=== PATIENT | female | born 1975 | race Caucasian/White ===

== ENCOUNTER 2016-08-24 15:30 | Emergency (ER) | payer MEDICAID ==
[~2016-08-24] VITALS: Ht 152.4 cm; Wt 56.7 kg
[2016-08-24 17:02] VITALS: BP 118/65
--- NOTE | 2016-08-24 17:10 | NUR ---
PATIENT TAKEN TO WR
--- NOTE | 2016-08-24 17:20 | NUR ---
PATIENT TAKEN TO XR
--- NOTE | 2016-08-24 18:00 | NUR ---
PATIENT TAKEN TO OFBrijesh AYON TALKING TO PATIENT REGARDING XR RESULTS
[2016-08-24] MEDS ORDERED: KETOROLAC 30 MG/ML VIAL IM ONE (18:20)
--- NOTE | 2016-08-24 18:33 | NUR ---
MEDICATED FOR PAIN
[2016-08-24 18:51] VITALS: BP 99/58
--- NOTE | 2016-08-24 18:51 | NUR ---
Patient discharged with v/s stable. Written and verbal after care instructions given and explained. Patient alert, oriented and verbalized understanding of instructions. Ambulatory with to home. All questions addressed prior to discharge. ID band removed. Patient advised to follow up with PMD. Rx of MOTRIN given. Patient educated on indication of medication including possible reaction and side effects. Opportunity to ask questions provided and answered.
--- NOTE | 2016-08-24 18:51 | NUR ---
AMB. WITH CRUTCHES.REFUSED W/C ASSISTANCE
== END 2016-08-24 18:51 | disposition home or self-care (01) ==
LOC: MED 15:30
DX: S70.01XA Contusion of right hip, initial encounter (principal); Z88.0 Allergy status to penicillin; W19.XXXA Unspecified fall, initial encounter; Y93.89 Activity, other specified; Y92.89 Other specified places as the place of occurrence of the external cause; Y99.8 Other external cause status
CPT/HCPCS: 73501; 73552; 96372; 99284; J1885

== ENCOUNTER 2018-05-18 18:22 | Emergency (ER) | payer MEDICAID ==
[~2018-05-18] VITALS: Ht 157.5 cm; Wt 56.7 kg
[2018-05-18 19:01] VITALS: BP 114/57
[2018-05-18] MEDS ORDERED: ACETAMINOPHEN 325 MG TAB PO ONE (19:04)
[2018-05-18] MEDS ORDERED: ACETAMINOPHEN 325 MG TAB ONE (19:14)
--- NOTE | 2018-05-18 20:55 | NUR ---
PT PRESENTS TO ED WITH N/V, SEVERE RODARTE, BLURRED VISION, AND LIGHT SENSITIVITY X2 DAYS. 10/10 PAIN. PT STATES HX OF MIGRAIN RODARTE'S. VSS. POSITIONED IN BED FOR COMFORT. ER MD AWARE. FAMILY AT BEDSIDE. CONTINUE TO MONITOR.
--- NOTE | 2018-05-18 20:55 | NUR ---
PT AMBULATED TO BED 4 WITH VSS.
[2018-05-18] MEDS ORDERED: ONDANSETRON 4 MG/2 ML VIAL IVP ONE (21:15)
[2018-05-18] MEDS ORDERED: KETOROLAC 30 MG/ML VIAL IVP ONE (21:15)
[2018-05-18] MEDS ORDERED: NACL 0.9% 1,000 ML IV ONE (21:15)
[2018-05-18 21:57] LABS: BASOPHILS # (AUTO) 0.1 K/uL (0.00-0.22); BASOPHILS % (AUTO) 0.7 % (0.0-2.0); EOSINOPHILS % (AUTO) 8.7 % (0.0-4.0); HEMATOCRIT 30.6 % (36-48); HEMOGLOBIN 9.6 g/dL (12.0-16.0); LYMPHOCYTES # (AUTO) 2.1 K/uL (2.5-16.5); LYMPHOCYTES % (AUTO) 17.7 % (20.5-51.1); MEAN CORPUSCULAR HEMOGLOBIN 21 pg (27-31); MEAN CORPUSCULAR HGB CONC 31 g/dL (33-37); MEAN CORPUSCULAR VOLUME 68.1 fL (80-94); MONOCYTES # (AUTO) 0.6 K/uL (0.8-1.0); MONOCYTES % (AUTO) 4.9 % (1.7-9.3); NEUTROPHILS # (AUTO) 8.1 K/uL (1.8-7.7); PLATELET COUNT (AUTO) 358 K/uL (140-450); RED BLOOD CELL COUNT(AUTO) 4.49 MIL/uL (4.20-5.40); RED CELL DISTRIBUTION WIDTH 16.9 % (11.6-13.7); WHITE BLOOD COUNT (AUTO) 11.9 K/uL (4.8-10.8)
[2018-05-18 22:07] LABS: ANION GAP 14.5 (8-16); CARBON DIOXIDE 25.7 mmol/L (21-32); CREATININE 0.7 mg/dL (0.6-1.3); POTASSIUM 3.2 mmol/L (3.5-5.1)
[2018-05-18 22:13] LABS: TOTAL BILIRUBIN 0.3 mg/dL (0.0-1.0)
[2018-05-18] MEDS ORDERED: POTASSIUM CHLORIDE 10 MEQ TABER PO ONE (22:15)
[2018-05-18 23:21] LABS: APPEARANCE,URINE CLEAR (CLEAR); COLOR,URINE YELLOW (YELLOW)
[2018-05-18 23:22] LABS: BILIRUBIN,URINE NEGATIVE (NEGATIVE); BLOOD, URINE 1+ (NEGATIVE); LEUKOCYTE ESTERASE ,URINE 2+ (NEGATIVE); NITRITE, URINE NEGATIVE (NEGATIVE); UGLUCOSE NEGATIVE (NEGATIVE)
[2018-05-18 23:23] LABS: RBC,URINE 11-20 (MOD) /HPF (0-5); WBC,URINE TOO MANY TO COUNT /HPF (0-5)
[2018-05-18] MEDS ORDERED: LEVOFLOXACIN 750 MG TAB PO ONE (23:45)
[2018-05-19] MEDS: MORPHINE SULFATE 4 MG/ML SYR IVP ONE ×2 (00:20→00:22)
[2018-05-19] MEDS ORDERED: NACL 0.9% 1,000 ML IV ONE (00:50)
[2018-05-19] MEDS ORDERED: KETOROLAC 30 MG/ML VIAL IVP ONE (00:50)
[2018-05-19 02:19] VITALS: BP 123/78
--- NOTE | 2018-05-19 02:19 | NUR ---
Patient discharged with v/s stable. Written and verbal after care instructions given and explained. Patient alert, oriented and verbalized understanding of instructions. Ambulatory with steady gait. All questions addressed prior to discharge. ID band removed. Patient advised to follow up with PMD. Rx of Ibuprofen and Levaquin given. Patient educated on indication of medication including possible reaction and side effects. Opportunity to ask questions provided and answered.
== END 2018-05-19 02:19 | disposition home or self-care (01) ==
LOC: MED 18:22
DX: N39.0 Urinary tract infection, site not specified (principal); D64.9 Anemia, unspecified; R19.09 Other intra-abdominal and pelvic swelling, mass and lump; E87.6 Hypokalemia; R74.0 Nonspecific elevation of levels of transaminase and lactic acid dehydrogenase [LDH]; G43.909 Migraine, unspecified, not intractable, without status migrainosus; Z88.0 Allergy status to penicillin
CPT/HCPCS: 36415; 71045; 74176; 76856; 80053; 81001; 81025; 83690; 85025; 87086; 87186; 87804; 93005; 96361; 96374; 96375; 99284; J1885; J2405; J7030; Q0092; J2270

== ENCOUNTER 2018-12-16 15:37 | Emergency (ER) | payer MEDICAID ==
[~2018-12-16] VITALS: Ht 152.4 cm; Wt 58.1 kg
[2018-12-16 15:48] VITALS: BP 106/63
[2018-12-16] MEDS ORDERED: HYDROcodone/APAP 5/325 MG 1 TAB TAB PO ONE (17:50)
[2018-12-16] MEDS ORDERED: ONDANSETRON 4 MG/2 ML VIAL IVP ONE (18:10)
[2018-12-16] MEDS ORDERED: NACL 0.9% 1,000 ML IV ONE (18:10)
[2018-12-16 18:24] LABS: BASOPHILS # (AUTO) 0.1 K/uL (0.00-0.22); BASOPHILS % (AUTO) 0.7 % (0.0-2.0); EOSINOPHILS # (AUTO) 1.1 K/uL (0-0.4); HEMATOCRIT 30.1 % (36-48); HEMOGLOBIN 9.5 g/dL (12.0-16.0); LYMPHOCYTES # (AUTO) 2.2 K/uL (2.5-16.5); LYMPHOCYTES % (AUTO) 22.5 % (20.5-51.1); MEAN CORPUSCULAR HEMOGLOBIN 22 pg (27-31); MEAN CORPUSCULAR HGB CONC 32 g/dL (33-37); MEAN CORPUSCULAR VOLUME 68.3 fL (80-94); MONOCYTES # (AUTO) 0.6 K/uL (0.8-1.0); NEUTROPHILS # (AUTO) 5.9 K/uL (1.8-7.7); NEUTROPHILS % (AUTO) 59.8 % (42.2-75.2); PLATELET COUNT (AUTO) 329 K/uL (140-450); RED BLOOD CELL COUNT(AUTO) 4.41 MIL/uL (4.20-5.40); RED CELL DISTRIBUTION WIDTH 19.3 % (11.6-13.7); WHITE BLOOD COUNT (AUTO) 9.9 K/uL (4.8-10.8)
[2018-12-16 19:10] LABS: ANION GAP 12.8 (8-16); CARBON DIOXIDE 27.1 mmol/L (21-32); CREATININE 0.8 mg/dL (0.6-1.3); POTASSIUM 3.9 mmol/L (3.5-5.1)
[2018-12-16 19:16] LABS: ALBUMIN 3.8 g/dL (3.4-5.0); TOTAL BILIRUBIN 0.3 mg/dL (0.0-1.0)
[2018-12-16 21:12] VITALS: BP 101/61
== END 2018-12-16 21:12 | disposition home or self-care (01) ==
LOC: MED 15:37
DX: G43.809 Other migraine, not intractable, without status migrainosus (principal); R11.2 Nausea with vomiting, unspecified; Z86.69 Personal history of other diseases of the nervous system and sense organs; Z88.0 Allergy status to penicillin
CPT/HCPCS: 36415; 70450; 80053; 81002; 81025; 85025; 96361; 96374; 99284; J2405; J7030

== ENCOUNTER 2019-01-16 15:45 | Emergency (ER) | payer MEDICAID ==
[~2019-01-16] VITALS: Ht 152.4 cm; Wt 58.1 kg
[2019-01-16 15:49] VITALS: BP 110/68
[2019-01-16] MEDS ORDERED: KETOROLAC 30 MG/ML VIAL IVP ONE (16:15)
[2019-01-16 16:25] LABS: BASOPHILS # (AUTO) 0.1 K/uL (0.00-0.22); BASOPHILS % (AUTO) 0.8 % (0.0-2.0); EOSINOPHILS # (AUTO) 1.2 K/uL (0-0.4); EOSINOPHILS % (AUTO) 9.1 % (0.0-4.0); HEMATOCRIT 32.9 % (36-48); HEMOGLOBIN 10.1 g/dL (12.0-16.0); LYMPHOCYTES # (AUTO) 1.6 K/uL (2.5-16.5); LYMPHOCYTES % (AUTO) 11.8 % (20.5-51.1); MEAN CORPUSCULAR HEMOGLOBIN 21 pg (27-31); MEAN CORPUSCULAR HGB CONC 31 g/dL (33-37); MEAN CORPUSCULAR VOLUME 69.8 fL (80-94); MONOCYTES # (AUTO) 0.8 K/uL (0.8-1.0); MONOCYTES % (AUTO) 6.4 % (1.7-9.3); NEUTROPHILS # (AUTO) 9.5 K/uL (1.8-7.7); NEUTROPHILS % (AUTO) 71.9 % (42.2-75.2); PLATELET COUNT (AUTO) 338 K/uL (140-450); RED BLOOD CELL COUNT(AUTO) 4.72 MIL/uL (4.20-5.40); RED CELL DISTRIBUTION WIDTH 18.5 % (11.6-13.7); WHITE BLOOD COUNT (AUTO) 13.2 K/uL (4.8-10.8)
[2019-01-16 16:31] LABS: BILIRUBIN,URINE NEGATIVE (NEGATIVE); BLOOD, URINE 1+ (NEGATIVE); COLOR,URINE YELLOW (YELLOW); LEUKOCYTE ESTERASE ,URINE 1+ (NEGATIVE); NITRITE, URINE POSITIVE (NEGATIVE); PH,URINE 5.5 (5.0-9.0); UGLUCOSE NEGATIVE (NEGATIVE)
[2019-01-16 16:34] LABS: APPEARANCE,URINE CLOUDY (CLEAR)
[2019-01-16 16:43] LABS: ALBUMIN 3.9 g/dL (3.4-5.0); ANION GAP 13.3 (8-16); CARBON DIOXIDE 24.4 mmol/L (21-32); CREATININE 0.7 mg/dL (0.6-1.3); POTASSIUM 3.7 mmol/L (3.5-5.1); TOTAL BILIRUBIN 0.3 mg/dL (0.0-1.0)
[2019-01-16 16:44] LABS: RBC,URINE 0-5 /HPF (0-5)
[2019-01-16 16:45] LABS: TRICHOMONAS,URINE None Seen /HPF (None Seen); YEAST,URINE None Seen /HPF (None Seen)
[2019-01-16] MEDS ORDERED: MORPHINE SULFATE 4 MG/ML SYR IVP ONE (17:45)
[2019-01-16 18:38] VITALS: BP 100/51
== END 2019-01-16 18:38 | disposition home or self-care (01) ==
LOC: MED 15:45
DX: N39.0 Urinary tract infection, site not specified (principal); N83.202 Unspecified ovarian cyst, left side; Z88.0 Allergy status to penicillin
CPT/HCPCS: 36415; 74176; 80053; 81001; 81025; 83690; 85025; 87086; 87186; 96374; 96375; 99284; J1885; J2270

== ENCOUNTER 2020-02-21 11:05 | Emergency (ER) | payer SELFPAY ==
[~2020-02-21] VITALS: Ht 157.5 cm; Wt 59.0 kg
[2020-02-21 11:13] VITALS: BP 115/64
[2020-02-21] MEDS ORDERED: KETOROLAC 60 MG/2 ML VIAL IM ONE (12:25)
[2020-02-21 13:00] VITALS: BP 115/64
== END 2020-02-21 13:00 | disposition home or self-care (01) ==
LOC: MED 11:05
DX: R10.2 Pelvic and perineal pain (principal); Z97.5 Presence of (intrauterine) contraceptive device; Z88.0 Allergy status to penicillin; Z98.890 Other specified postprocedural states
CPT/HCPCS: 81002; 96372; 99284; J1885

== ENCOUNTER 2020-03-15 09:34 | Emergency (ER) | payer SELFPAY ==
[~2020-03-15] VITALS: Ht 157.5 cm; Wt 59.0 kg
[2020-03-15 09:51] VITALS: BP 100/57
--- NOTE | 2020-03-15 10:16 | NUR ---
44 y/o female from home c/o right lower quad pain that radiates to lower back since yesterday. Pt guarding lower abd. +nausea. Denies vomiting/diarrhea. 10/10 sharp, constant abd pain. Skin warm, dry, intact. Abd tender to palp. Bowel sounds present x 4 quad.
[2020-03-15] MEDS ORDERED: KETOROLAC 30 MG/ML VIAL IVP ONE (10:30)
--- NOTE | 2020-03-15 10:32 | NUR ---
Dr Swenson at bedside examining patient
--- NOTE | 2020-03-15 10:39 | NUR ---
Patient transferred from chair C to bed 4 for further evaluation. RN evaluating patient at bedside.
--- NOTE | 2020-03-15 10:52 | NUR ---
20G IV placed to left ac, blood drawn and given to phleb at this time.
--- NOTE | 2020-03-15 11:08 | NUR ---
Pt states she urinated prior to arrival to ED and is unable to urinate at this time.
[2020-03-15 11:11] LABS: BASOPHILS # (AUTO) 0.1 K/uL (0.00-0.22); BASOPHILS % (AUTO) 0.5 % (0.0-2.0); EOSINOPHILS # (AUTO) 1.2 K/uL (0-0.4); EOSINOPHILS % (AUTO) 9.5 % (0.0-4.0); HEMATOCRIT 31.8 % (36-48); HEMOGLOBIN 9.9 g/dL (12.0-16.0); LYMPHOCYTES # (AUTO) 1.4 K/uL (2.5-16.5); LYMPHOCYTES % (AUTO) 10.6 % (20.5-51.1); MEAN CORPUSCULAR HEMOGLOBIN 22 pg (27-31); MEAN CORPUSCULAR HGB CONC 31 g/dL (33-37); MEAN CORPUSCULAR VOLUME 69.6 fL (80-94); MONOCYTES # (AUTO) 0.4 K/uL (0.8-1.0); MONOCYTES % (AUTO) 3.4 % (1.7-9.3); NEUTROPHILS # (AUTO) 9.7 K/uL (1.8-7.7); PLATELET COUNT (AUTO) 325 K/uL (140-450); RED BLOOD CELL COUNT(AUTO) 4.57 MIL/uL (4.20-5.40); RED CELL DISTRIBUTION WIDTH 17.3 % (11.6-13.7); WHITE BLOOD COUNT (AUTO) 12.8 K/uL (4.8-10.8)
--- NOTE | 2020-03-15 11:16 | NUR ---
Pt ambulated with steady gait to restromom for UA collection.
--- NOTE | 2020-03-15 11:23 | NUR ---
Pt taken to CT via [facility].
--- NOTE | 2020-03-15 11:30 | NUR ---
Patient returned from CT scan. RN reevaluating the patient at bedside.
--- NOTE | 2020-03-15 11:32 | NUR ---
States decrease in pain after IV Toradol, 4/10 at this time. Will continue to monitor
[2020-03-15 11:34] LABS: PROTHROMBIN TIME 9.9 secs (10.8-13.4)
[2020-03-15 11:44] LABS: ALBUMIN 4.1 g/dL (3.4-5.0); ANION GAP 12.6 (8-16); CREATININE 0.7 mg/dL (0.6-1.3); POTASSIUM 3.6 mmol/L (3.5-5.1); TOTAL BILIRUBIN 0.2 mg/dL (0.0-1.0)
[2020-03-15 12:57] LABS: BILIRUBIN,URINE NEGATIVE (NEGATIVE); BLOOD, URINE 1+ (NEGATIVE); COLOR,URINE YELLOW (YELLOW); LEUKOCYTE ESTERASE ,URINE NEGATIVE (NEGATIVE); NITRITE, URINE NEGATIVE (NEGATIVE); PH,URINE 5.5 (5.0-9.0); UGLUCOSE NEGATIVE (NEGATIVE)
--- NOTE | 2020-03-15 13:17 | NUR ---
Pt resting in bed positioned for comfort, HOB elevated. RR even and unlabored. Minimal pain at this time. VSS
[2020-03-15 13:31] LABS: RBC,URINE 0-5 /HPF (0-5); WBC,URINE 0-5 /HPF (0-5)
[2020-03-15 13:32] LABS: APPEARANCE,URINE CLEAR (CLEAR)
[2020-03-15 14:11] VITALS: BP 104/60
--- NOTE | 2020-03-15 14:11 | NUR ---
Patient discharged with v/s stable. Written and verbal after care instructions given and explained. Patient alert, oriented and verbalized understanding of instructions. Ambulatory with steady gait. All questions addressed prior to discharge. ID band removed. Patient advised to follow up with PMD. Rx of miralax 1cap BID PO with 8oz h20 or juice, norco 5mg-325mg 1 tab q6h PO given. Patient educated on indication of medication including possible reaction and side effects. Opportunity to ask questions provided and answered.
== END 2020-03-15 14:11 | disposition home or self-care (01) ==
LOC: MED 09:34
DX: R10.30 Lower abdominal pain, unspecified (principal); R56.9 Unspecified convulsions; Z88.0 Allergy status to penicillin; Z98.890 Other specified postprocedural states
CPT/HCPCS: 36415; 74176; 80053; 81001; 81025; 83605; 85025; 85610; 85730; 87040; 87086; 96374; 99284; J1885